=== PATIENT | male | born 1995 ===

== ENCOUNTER 2024-09-05 00:14 | Emergency (ER) | payer MEDICAID ==
[~2024-09-05] VITALS: Ht 170.2 cm; Wt 98.7 kg
[2024-09-05 03:12] VITALS: BP 139/89
== END 2024-09-05 03:13 | disposition home or self-care (01) ==
LOC: ED 00:14
DX: F43.22 Adjustment disorder with anxiety (principal); Z59.02 Unsheltered homelessness
CPT/HCPCS: 99283

== ENCOUNTER 2024-09-16 16:20 | Emergency (ER) | payer MEDICAID ==
[~2024-09-16] VITALS: Ht 170.2 cm
--- OUTSIDE RECORDS SUMMARY | 2024-09-16 16:26 | XMS ---
PreManage Notification: ROMA SEPULVEDA Security [employer] Distribution Executive Events No recent Security Events currently on file CRITERIA MET - [facility] - 2 Visits in 30 Days CARE PROVIDERS There are no care providers on record at this time. Sameera has no Care Guidelines for this patient. Andreas VIS[place] COUNT (12 MO.) [facility] T[place] 2 NOTE: Visits indicate total known visits. [place] [place] (12 MO.) [facility] 16[facility]20 [facility] [place]: Emergency COMPLAINT: - MOUTH PAIN 09/05/2024 00:15 [facility] [place] TYPE: Emergency COMPLAINT: - SOB DIAGNOSES: - Adjustment disorder with anxiety - Shortness of breath - Unsheltered homelessness INPATIENT VISIT TRACKING (12 MO.) No inpatient visits to display in this time frame [email or web address]
[2024-09-16 16:47] VITALS: BP 144/97
== END 2024-09-16 16:45 | disposition home or self-care (01) ==
LOC: ED 16:20
DX: K06.8 Other specified disorders of gingiva and edentulous alveolar ridge (principal)
CPT/HCPCS: 99282